=== PATIENT | female | born 1970 | race Caucasian/White ===

== ENCOUNTER → 2016-07-16 | Outpatient (CLI) | payer OTHER ==
[~2016-07-16] MED LIST: ALBUAER2 INH; AMIT25TA9 PO; BACL1TAB PO; BUPRTAB PO; BUPRTAB51 PO; CHOL20007 PO; CLR10 PO; DULO60CA44 PO; ELET40TA PO; IMITREX PO; LAMO200T38 PO; LEVO112T4 PO; LSX20 PO; MELO15TA10 PO; MOME50SP5 NAE; MULT-506 PO; OPTOPS OPB; POTA99TA PO; PRAZ2CAP3 PO; SNG10 PO; SUMA6KIT SQ; SYMIN160 INH; TIZA4CAP PO; TOPI200T14 PO; TOPI50TA25 PO
[2016-07-16 12:56] LABS: ALT/SGPT 28 U/L (12-78); AST/SGOT 13 U/L (15-37); BLOOD UREA NITROGEN 14 mg/dl (7-18); BUN/CREATININE RATIO 13.6 (10-20); CALCIUM 8.8 mg/dl (8.5-10.1); CARBON DIOXIDE 23 mmol/L (21-32); CHLORIDE 105 mmol/L (98-107); GLUCOSE 92 mg/dl (70-99); MAGNESIUM 2.1 mg/dl (1.8-2.4); POTASSIUM 3.4 mmol/L (3.5-5.1); SODIUM 140 mmol/L (136-145)
[2016-07-16 13:07] LABS: ALB/GLOB RATIO 1.2 (0.9-2); ALKALINE PHOSPHATASE 113 U/L (45-117)
== END | disposition home or self-care (01) ==
LOC: C.LAB1850 10:56
PROVIDERS: ATTEND Internal Medicine
DX: R53.83 Other fatigue (principal); E03.9 Hypothyroidism, unspecified

== ENCOUNTER → 2016-08-29 | Day surgery (SDC) | payer OTHER ==
[2016-08-23 07:46] VITALS: BMI 38.0
--- NOTE | 2016-08-28 13:48 | HISTORY & PHYSICAL EXAMINATION ---
DATE OF ADMISSION: 08/29/2016 SUBJECTIVE CHIEF COMPLAINT: Lower back pain. HISTORY OF PRESENT ILLNESS: The patient has been seen for some time with bilateral lower back pain. She has been treated with corticosteroid injections in both sacroiliac joints and she has done quite well with these. She is now being set up for another set of injections. PAST MEDICAL HISTORY: Asthma, anxiety and depression, bipolar disorder, hypothyroidism, history of neck and lower back pain, obesity. SOCIAL HISTORY: The patient denies alcohol and tobacco use. FAMILY HISTORY: Noncontributory. PAST SURGICAL HISTORY: Ankle surgery in April 2015, sinus surgery in September 2004, corticosteroid injections into her neck in 2004, wisdom teeth surgery in 1989, laparoscopy in 1993 and tonsillectomy in 1974. ALLERGIES: SULFA MEDICATIONS AND EGG WHITES. CURRENT MEDICATIONS: Singulair 10 mg, Topamax 200 mg, Lasix 20 mg, levothyroxine 112 mcg, lamotrigine 200 mg, Claritin 10 mg, amitriptyline 25 mg, Gablofen 10 mg, tizanidine 4 mg, Symbicort 160/4.5 mcg, Cymbalta 60 mg, meloxicam 15 mg, cromolyn 4% eyedrops, Ventolin HFA 90 mcg, triamcinolone 55 mcg nasal spray, Imitrex 10 mg, vitamin D 2000 mg supplement, multivitamin and prazosin 2 mg. OBJECTIVE PHYSICAL EXAMINATION: GENERAL: The patient is alert and oriented x3. She is in no acute distress. She is a well-dressed, well-nourished 45-year-old female. Her affect is appropriate. CARDIOVASCULAR: Heart has a regular rhythm and rate without murmurs. LUNGS: Clear to auscultation bilateral. Dorsalis pedis, posterior tib pulse +2/4. Cap refill is less than 2 seconds. LYMPHATIC: No evidence of any swollen lymph nodes. MUSCULOSKELETAL: The patient has a compensated gait favoring bilateral lower extremities with palpation of her lower back. She has tenderness at the right and left sacroiliac joints. She has equal strength in bilateral lower extremities with dorsiflexion, plantar flexion, inversion, eversion and also with knee extension and flexion. NEUROLOGIC: Patellar and Achilles deep tendon reflexes are 2/4. Sensation normal and intact in bilateral lower extremities. SKIN: There are no scars, rashes or ulcers noted at her lower back. ASSESSMENT AND DIAGNOSIS: Sacroiliac joint osteoarthritis bilateral. PLAN: Above assessment was discussed with the patient. At this time, it was recommended that patient undergo bilateral sacroiliac joints under fluoroscopy. All potential risks, benefits, complications, alternatives and rehab have been discussed with the patient. At this time, she wishes to proceed with the surgery as indicated and she will be scheduled for the surgery on 08/29/2016.
[~2016-08-29] VITALS: Ht 160 cm; Wt 97.7 kg
[~2016-08-29] MED LIST changes: +BUPIVACAINE 0.25% 30 ML VIAL ONE; +BUPIVACAINE 0.5 % 5 MG/1 ML MPF 30ML VIAL ONE; +BUPIVACAINE/EPINEPHRINE 0.5% MPF 1:200,000 30 ML VIAL ONE; -ELET40TA PO; +FENTANYL CITRATE INJ 50 MCG/1 ML 2 ML VIAL IV PRN; +FENTANYL CITRATE INJ 50 MCG/1 ML 2 ML VIAL ONE; +HYALURONIDASE HUMAN 150 UNIT/ML INJ ONE; +LACTATED RINGER'S 1000ML 1,000 ML IV PRN; +LACTATED RINGER'S 1000ML 1,000 ML IV SCH; +LIDOCAINE HCL 1% 20 ML VIAL ONE; +METHYLPREDNISOLONE ACETATE 80 MG/ML VIAL ONE; +MIDAZOLAM HCL 1 MG/ML 2ML VIAL ONE; +NEOMYCIN/POLYMYX/BACITR OINT 15 GM TUBE ONE; +ONDANSETRON INJ 2 MG/ML 2 ML VIAL IV PRN; -POTA99TA PO; +PROPOFOL IV EMULSION 10 MG/ML 20 ML VIAL IV ONE; +SODIUM CHLORIDE 0.9% INJ 10 ML VIAL ONE; +TRIAMCINOLONE ACET 40 MG/ML VIAL ONE
[2016-08-29 06:05] VITALS: BP 115/59; PULSE 98; TEMP 37; O2SAT 97; Ht 160 cm; Wt 97.7 kg
--- NOTE | 2016-08-29 07:57 | History & Physical Bridge Note ---
H&P Re-Evaluation Bridge Note: I have examined the patient, reviewed the History & Physical and in the interval since the performance of the History & Physical I have noted the following changes of clinical significance: No changes noted
--- NOTE | 2016-08-29 09:15 | [facility] Post Operative Brief Note ---
Immediate Operative Summary Operative Date Aug 29, 2016. Pre-Operative Diagnosis bilateral sacroiliac joint osteoarthritis Post-Operative Diagnosis bilateral sacroiliac joint osteoarthritis Procedure(s) Performed Bilateral Sacroiliac Steroid Injections Under Fluoro with sedation Surgeon Dr. Rolf Sosa Stone Rubber Surgeon(s) None Estimated Blood Loss 0ml Findings See Dict Specimens none per surgeon Dr. Rolf Sosa Drains None Anesthesia Local w/ sedation Complication(s) None Disposition Recovery Room / PACU
--- NOTE | 2016-08-29 09:23 | DIAGNOSTIC IMAGING REPORT ---
INTRAOPERATIVE RADIOGRAPHS CLINICAL HISTORY: Bilateral sacroiliac joint injections. Fluoroscopy time: 40 seconds. FINDINGS: 2 spot fluoroscopic views of the sacroiliac joints are presented. There is contrast present from bilateral sacroiliac joint injections. IMPRESSION: Intraoperative images from bilateral sacroiliac joint injections. Electronically signed by: Villa Adame M.D. 08/29/2016 9:22 AM Dictated Date/Time: 08/29/2016 9:21 AM
--- NOTE | 2016-08-29 09:24 | Discharge Instructions ---
Discharge Instructions Date of Service Aug 29, 2016. Admission Reason for Admission: Bilateral Sacroliac Joint Arthritis Discharge Discharge Diagnosis / Problem: Bilateral Sacroliac Joint Arthritis Discharge Goals Goal(s): Decrease discomfort, Improve function Activity Recommendations Activity Limitations: resume your previous activity Lifting Limitations: none Exercise/Sports Limitations: none May Resume Sexual Activity: when tolerated Shower/Bathe: tomorrow Driving or Machine Use: resume 1 day after discharge Weightbearing Status: Left weightbearing (as tolerated), Right weightbearing ( as tolerated) . Instructions / Follow-Up Instructions / Follow-Up ACTIVITY RECOMMENDATIONS: * You may walk on the legs without crutches as comfort permits. * Do not shower for 16 hours following surgery. SPECIAL CARE INSTRUCTIONS: * You may cleanse the skin adjacent to the small wounds with soap and water at the time of the first dressing change. * The application of an ice bag to the lower back will decrease swelling and discomfort for the first 48 hours. * The small incisions may be sore and develop bruising. This bruising does not require any special care. SPECIAL PRECAUTIONS: * If you experience unusual pain unrelieved by prescriptions, temperature elevation (100 degrees F. or above) or progressive swelling or bleeding, you should contact our office at for further evaluation. * You may have been prescribed pain medication. If you experience nausea and/or fine skin rash, discontinue this medication and contact our office at for an alternate medication. DRESSING: * Dressing should be comfortable and absorb any leakage of fluid and/or blood. * The dressing may become moist or bloodstained. * Dressing may be removed 1 after surgery and bandaids placed over the small surgical incisions. If can be removed sooner if it becomes very soiled or loose. * Bandaids may be used over next several days as needed and can be discontinued when there is not further drainage from the wounds. FOLLOW UP VISIT: If appointment is not already scheduled: Please call [facility] to make a follow-up appointment for your surgery at . Current Hospital Diet Patient's current hospital diet: Discharge Diet Recommended Diet: Regular Diet Procedures Procedures Performed: Bilateral Sacroiliac Steroid Injections Under Fluoro with sedation Pending Studies Studies pending at discharge: no Medical Emergencies . Who to Call and When: Medical Emergencies: If at any time you feel your situation is an emergency, please call 911 immediately. . Non-Emergent Contact Non-Emergency issues call your: Surgeon Call Non-Emergent contact if: temperature is above 101, your pain is not controlled, wound has increased redness . "Provider Documentation" section prepared by Rolf Sosa. VTE Core Measure Inpt VTE Proph given/why not?: Treatment not indicated
--- NOTE | 2016-08-29 09:27 | Anesthesiology Progress Note ---
Anesthesia Post Op Note Date & Time Aug 29, 2016 at 09:27 Vital Signs Pain Intensity: 0 Vital Signs Past 12 Hours Date Time Temp Pulse Resp B/P Pulse Ox O2 Delivery O2 Flow Rate FiO2 08/29/16 09:21 71 16 97 08/29/16 09:21 71 16 08/29/16 09:20 125/74 08/29/16 09:16 72 16 08/29/16 09:16 72 16 118/71 98 08/29/16 09:11 75 16 124/69 97 08/29/16 09:11 74 16 08/29/16 09:06 75 15 100 08/29/16 09:06 75 15 08/29/16 09:05 122/79 08/29/16 09:01 81 08/29/16 09:01 36.0 82 12 124/85 100 Nasal Cannula 2 08/29/16 09:01 81 124/85 100 08/29/16 06:05 37 98 20 115/59 97 Room Air Notes Mental Status: alert / awake / arousable, participated in evaluation Pt Amnestic to Procedure: No Nausea / Vomiting: adequately controlled Pain: adequately controlled Airway Patency, RR, SpO2: stable & adequate BP & HR: stable & adequate Hydration State: stable & adequate Anesthetic Complications: no major complications apparent Pt doing well. Recall as expected.
[2016-08-29 09:30] VITALS: BP 105/59; PULSE 68; TEMP 36.4; O2SAT 98
--- NOTE | 2016-08-29 09:54 | OPERATIVE REPORT ---
DATE OF OPERATION: 08/29/2016 PREOPERATIVE DIAGNOSES: 1. Bilateral sacroiliac joint osteoarthritis. 2. Bilateral sacroiliac joint pain. POSTOPERATIVE DIAGNOSES: Same. PROCEDURE: Bilateral sacroiliac joint steroid injections with fluoroscopy under sedation. SURGEON: Dr. Rolf Sosa. THERAPY ADMINISTRATIVE ASSISTANT: None. ANESTHESIA: Local with sedation. SPECIMENS: None. DRAINS: None. COMPLICATIONS: None. BLOOD LOSS: Less than 1 mL. PERTINENT HISTORY: This is a 45-year-old female with bilateral sacroiliac joint osteoarthritis, pain and limitation in weightbearing and walking due to the above. The patient attempted conservative management including physical therapy, home exercises, anti-inflammatories, rest, observation, shoe wear modification, and other modalities. She was scheduled for surgery as indicated. All potential risks, benefits, complications, alternatives, rehab, potential for incomplete relief of symptoms, need for further surgery, DVT, PE, , persistent pain, swelling, scarring, weakness, neurovascular injury, and wound complications were discussed with the patient. The patient decided to proceed with the procedure as indicated. DESCRIPTION OF PROCEDURE: The patient was taken to the operative suite and placed supine on the transfer cart. After sedation, the patient was then rolled prone over bolsters. All bony prominences were properly padded and protected. The patient was then positioned appropriately. Proper operative site was identified. Consent was reviewed: The patient was sedated. Next, the bilateral sacroiliac joint regions were sterilely prepped and draped in the usual fashion. Under live fluoroscopic assistance, the left sacroiliac joint was then identified and then 1% lidocaine, approximately 8 mL used to provide local anesthetic and then a 22-gauge spinal needle was then passed into the inferior one-third of the sacroiliac joint under live fluoroscopic assistance followed by confirmatory injection with 1 mL of Isovue. Next, a mixture of 2 mL of Depo-Medrol and 8 mL of 0.5% Marcaine plain was injected in the left sacroiliac joint, confirmed with fluoroscopy. Next, the needle was removed in its entirety and a sterile compressive dressing was applied with 4x4. Next, the right sacroiliac joint was then localized under live fluoroscopy followed by an injection with 1% lidocaine, approximately 8 mL. Next, a 22-gauge spinal needle was passed into the sacroiliac joint inferior one-third under live fluoroscopic assistance. This was confirmed with Isovue approximately 1 mL injected under fluoroscopy. Next, 2 mL of Depo-Medrol and 8 mL of 0.5% Marcaine plain was injected into the sacroiliac joint inferior one-third under live fluoroscopic assistance. Next, the needle was removed in its entirety. A sterile compressive dressing with 4x4 was applied. Next Band-Aids were placed over both injection sites. The patient was awakened and taken to recovery in stable condition. I attest to the content of the Intraoperative Record and any orders documented therein. Any exceptio ns are noted below.
[2016-08-29 10:00] VITALS: BP 99/59; PULSE 72; TEMP 36.4; O2SAT 99
[2016-08-29 10:32] VITALS: BP 104/55; PULSE 80; TEMP 36.5; O2SAT 99
== END | disposition home or self-care (01) ==
LOC: C.ACU 05:27
PROVIDERS: ATTEND Orthopaedic Surgery Sports Medicine
DX: M46.1 Sacroiliitis, not elsewhere classified (principal); M16.10 Unilateral primary osteoarthritis, unspecified hip; E03.9 Hypothyroidism, unspecified; E66.9 Obesity, unspecified; Z98.890 Other specified postprocedural states; J45.909 Unspecified asthma, uncomplicated; F41.9 Anxiety disorder, unspecified; F32.9 Major depressive disorder, single episode, unspecified; Z88.2 Allergy status to sulfonamides

== ENCOUNTER → 2017-01-10 | Outpatient (CLI) | payer OTHER ==
[~2017-01-10] MED LIST changes: -BUPIVACAINE 0.25% 30 ML VIAL ONE; -BUPIVACAINE 0.5 % 5 MG/1 ML MPF 30ML VIAL ONE; -BUPIVACAINE/EPINEPHRINE 0.5% MPF 1:200,000 30 ML VIAL ONE; -FENTANYL CITRATE INJ 50 MCG/1 ML 2 ML VIAL IV PRN; -FENTANYL CITRATE INJ 50 MCG/1 ML 2 ML VIAL ONE; -HYALURONIDASE HUMAN 150 UNIT/ML INJ ONE; -LACTATED RINGER'S 1000ML 1,000 ML IV PRN; -LACTATED RINGER'S 1000ML 1,000 ML IV SCH; -LIDOCAINE HCL 1% 20 ML VIAL ONE; -METHYLPREDNISOLONE ACETATE 80 MG/ML VIAL ONE; -MIDAZOLAM HCL 1 MG/ML 2ML VIAL ONE; -NEOMYCIN/POLYMYX/BACITR OINT 15 GM TUBE ONE; -ONDANSETRON INJ 2 MG/ML 2 ML VIAL IV PRN; -PROPOFOL IV EMULSION 10 MG/ML 20 ML VIAL IV ONE; -SODIUM CHLORIDE 0.9% INJ 10 ML VIAL ONE; -TRIAMCINOLONE ACET 40 MG/ML VIAL ONE
[2017-01-10 14:01] LABS: ALT/SGPT 28 U/L (12-78); AST/SGOT 24 U/L (15-37); BLOOD UREA NITROGEN 12 mg/dl (7-18); BUN/CREATININE RATIO 9.9 (10-20); CARBON DIOXIDE 23 mmol/L (21-32); CHLORIDE 109 mmol/L (98-107); CHOLESTEROL 167 mg/dl (0-200); GLUCOSE 88 mg/dl (70-99); POTASSIUM 3.8 mmol/L (3.5-5.1); SODIUM 143 mmol/L (136-145); TRIGLYCERIDES 98 mg/dl (0-150); VERY LOW DENSITY LIPOPROT CALC 20 mg/dl
[2017-01-10 14:11] LABS: ALB/GLOB RATIO 1.1 (0.9-2); ALKALINE PHOSPHATASE 104 U/L (45-117); CHOLESTEROL/HDL RATIO 3.5; HDL CHOLESTEROL 48 mg/dl; LDL CHOLESTEROL CALCULATED 99 mg/dl
== END | disposition home or self-care (01) ==
LOC: C.LABBC 09:26
PROVIDERS: ATTEND Internal Medicine
DX: E87.6 Hypokalemia (principal); Z86.39 Personal history of other endocrine, nutritional and metabolic disease; E03.9 Hypothyroidism, unspecified

== ENCOUNTER → 2017-05-27 | Outpatient (CLI) | payer OTHER ==
[~2017-05-27] MED LIST changes: +LAMO200T35 PO; -LAMO200T38 PO
--- NOTE | 2017-05-27 17:17 | DIAGNOSTIC IMAGING REPORT ---
TWO VIEW CHEST CLINICAL HISTORY: Cough. FINDINGS: PA and lateral chest radiographs are compared to study dated 01/17/2012. The cardiomediastinal silhouette is unremarkable. There are low lung volumes. The lungs and pleural spaces are clear. There is no pneumothorax. The bony thorax appears intact. Mild thoracic scoliosis is suggested. IMPRESSION: Low lung volumes with no active disease in the chest. Electronically signed by: Villa Adame M.D. 05/27/2017 5:16 PM Dictated Date/Time: 05/27/2017 5:15 PM
== END | disposition home or self-care (01) ==
LOC: C.RAD1850 16:55
PROVIDERS: ATTEND Nurse Practitioner
DX: R05 Cough (principal)

== ENCOUNTER → 2017-07-05 | Outpatient (CLI) | payer OTHER ==
--- NOTE | 2017-07-08 07:44 | MAMMOGRAPHY REPORT ---
BILATERAL DIGITAL SCREENING MAMMOGRAM TOMOSYNTHESIS WITH CAD: 07/05/2017 CLINICAL HISTORY: Routine screening. Patient has no complaints. TECHNIQUE: Breast tomosynthesis in addition to standard 2D mammography was performed. Current study was also evaluated with a Computer Aided Detection (CAD) system. COMPARISON: Comparison is made to exams dated: 05/23/2016 mammogram, 04/26/2015 mammogram, 04/19/2014 mammogram, 04/14/2013 mammogram, 03/18/2012 mammogram, and 03/13/2011 mammogram - [facility]. BREAST COMPOSITION: There are scattered areas of fibroglandular density in both breasts. FINDINGS: No suspicious masses, calcifications, or areas of architectural distortion are noted in ei ther breast. There has been no significant interval change compared to prior exams. IMPRESSION: ACR BI-RADS CATEGORY 1: NEGATIVE There is no mammographic evidence of malignancy. A 1 year screening mammogram is recommended. The pa tient will receive written notification of the results. Approximately 10% of breast cancers are not detected with mammography. A negative mammographic report should not delay biopsy if a clinically suggestive mass is present. Danika Rojas M.D. /:07/05/2017 15:10:41 Welding Technician: Malgorzata HOBSON(Nicolas)(Smita), [facility] letter sent: Normal 1/2 BI-RADS Code: ACR BI-RADS Category 1: Negative
== END | disposition home or self-care (01) ==
LOC: C.MAMM 14:07
PROVIDERS: ATTEND Obstetrics & Gynecology
DX: Z12.31 Encounter for screening mammogram for malignant neoplasm of breast (principal)

== ENCOUNTER → 2017-07-05 | Outpatient (CLI) | payer OTHER | END | disposition home or self-care (01) | LOC: C.LAB1850 13:48 | PROVIDERS: ATTEND Psychiatry & Neurology Child & Adolescent Psychiatry | DX: F31.81 Bipolar II disorder (principal) ==

== ENCOUNTER → 2017-07-22 | Outpatient (CLI) | payer OTHER ==
[2017-07-22 16:43] LABS: BASO % 0.4 %; BASO ABS # 0.03 K/uL (0-0.2); EOS % 4.4 %; EOS ABS # 0.31 K/uL (0-0.5); HEMATOCRIT 42.1 % (37-47); HEMOGLOBIN 14.5 g/dL (12.0-16.0); IG# 0.01 K/uL (0.00-0.02); LYMPH ABS # 2.33 K/uL (1.2-3.4); MEAN CELL VOLUME 93.1 fL (80-100); MEAN CORPUSCULAR HEMOGLOBIN 32.1 pg (25-34); MEAN CORPUSCULAR HGB CONC 34.4 g/dl (32-36); MEAN PLATELET VOLUME 9.3 fL (7.4-10.4); MONO % 6.7 %; MONO ABS # 0.47 K/uL (0.11-0.59); NEUT % 55.4 %; PLATELET COUNT 271 K/uL (130-400); RED CELL DISTRIBUTION WIDTH CV 13.6 % (11.5-14.5); RED CELL DISTRIBUTION WIDTH SD 46.6 fL (36.4-46.3); WHITE BLOOD COUNT 7.05 K/uL (4.8-10.8)
[2017-07-22 17:22] LABS: ALBUMIN 4.4 gm/dl (3.4-5.0); ALT/SGPT 31 U/L (12-78); BLOOD UREA NITROGEN 15 mg/dl (7-18); CALCIUM 8.9 mg/dl (8.5-10.1); CARBON DIOXIDE 26 mmol/L (21-32); CREATININE 1.05 mg/dl (0.60-1.20); GLUCOSE 89 mg/dl (70-99); POTASSIUM 3.4 mmol/L (3.5-5.1); SODIUM 138 mmol/L (136-145)
[2017-07-22 17:32] LABS: ALKALINE PHOSPHATASE 119 U/L (45-117); AST/SGOT 22 U/L (15-37); TOTAL PROTEIN 7.9 gm/dl (6.4-8.2)
== END | disposition home or self-care (01) ==
LOC: C.LAB1850 15:21
PROVIDERS: ATTEND Internal Medicine
DX: E03.9 Hypothyroidism, unspecified (principal); E55.9 Vitamin D deficiency, unspecified; R53.83 Other fatigue

== ENCOUNTER → 2017-09-11 | Outpatient (CLI) | payer OTHER ==
[2017-09-11 16:53] LABS: POTASSIUM 3.6 mmol/L (3.5-5.1)
== END | disposition home or self-care (01) ==
LOC: C.LAB1850 15:11
PROVIDERS: ATTEND Internal Medicine
DX: E03.9 Hypothyroidism, unspecified (principal); E87.6 Hypokalemia

== ENCOUNTER → 2017-09-23 | Outpatient (CLI) | payer OTHER ==
[~2017-09-23] MED LIST changes: +GADAVIST IV PRN
--- NOTE | 2017-09-23 22:01 | DIAGNOSTIC IMAGING REPORT ---
MRI OF THE BRAIN COMBO CLINICAL HISTORY: Migraine headache. COMPARISON STUDY: CT of the brain dated 02/28/2016 and MRI of the brain dated 02/02/2013. TECHNIQUE: MRI of the brain was performed utilizing various T1 and T2-weighted sequences in the axial, sagittal, and coronal planes. Contrast-enhanced sequences were acquired following the administration of 9.5 cc of Gadavist. FINDINGS: Brain parenchyma: The brain parenchyma is normal in appearance. There is no hemorrhage or mass effect. There is no restricted diffusion to suggest acute ischemia. No enhancing mass lesion is identified on the postcontrast images. Mendoza-white matter differentiation is preserved. No extra-axial fluid collection is seen. The cerebellar tonsils are normal in configuration. Ventricles, sulci, and cisterns: Normal in configuration. Pituitary and sella: Unremarkable. Intracranial vasculature: Normal flow voids are maintained at the skull base. Orbits: The bony orbits are grossly intact. Orbital contents are normal in appearance. Sinuses and mastoids: Clear. Calvarium: Unremarkable. Cervical cord: Partially visualized cervical spinal cord is normal in morphology and signal intensity. IMPRESSION: No acute intracranial abnormality. Electronically signed by: Villa Adame M.D. 09/23/2017 10:00 PM Dictated Date/Time: 09/23/2017 9:57 PM
== END | disposition home or self-care (01) ==
LOC: C.MRI 20:42
PROVIDERS: ATTEND Psychiatry & Neurology Neurology
DX: G43.719 Chronic migraine without aura, intractable, without status migrainosus (principal); M54.81 Occipital neuralgia; M21.41 Flat foot [pes planus] (acquired), right foot

== ENCOUNTER → 2017-10-18 | Outpatient (CLI) | payer OTHER ==
[~2017-10-18] MED LIST changes: -GADAVIST IV PRN
== END | disposition home or self-care (01) ==
LOC: C.PAPS 15:31
PROVIDERS: ATTEND Obstetrics & Gynecology
DX: Z01.419 Encounter for gynecological examination (general) (routine) without abnormal findings (principal)

== ENCOUNTER 2017-10-22 13:25 | Emergency (ER) | payer OTHER ==
[~2017-10-22] VITALS: Ht 160 cm; Wt 99.2 kg
[2017-10-22 13:32] VITALS: TEMP 36.9; Ht 160 cm; Wt 99.2 kg
--- NOTE | 2017-10-22 15:20 | DIAGNOSTIC IMAGING REPORT ---
HEAD WITHOUT CONTRAST (CT) CT DOSE: HISTORY: Trauma head injury, off balance, dizziness/headache TECHNIQUE: Multiaxial CT images of the head were performed without the use of intravenous contrast. A dose lowering technique was utilized adhering to the principles of ALARA. Comparison: 02/28/2016 Findings: The paranasal sinuses and mastoid air cells are clear. The calvarium and skull base are intact. The ventricles and sulci are within normal limits. There is no mass, hematoma, midline shift, or acute infarct. Impression: No acute intracranial abnormality. The above report was generated using voice recognition software. It may contain grammatical, syntax or spelling errors. Electronically signed by: Jono Jean-Baptiste M.D. 10/22/2017 3:19 PM Dictated Date/Time: 10/22/2017 3:18 PM
--- NOTE | 2017-10-22 15:24 | EMERGENCY ROOM VISIT NOTE ---
ED Visit Note First contact with patient: 13:37 CHIEF COMPLAINT: Head injury/facial pain HISTORY OF PRESENT ILLNESS: This 46-year-old female patient presented to the emergency department, ambulatory, 5 days after receiving a head injury. The patient states in the middle of the night on night, she awoke and bumped into a wall. She states she was wearing her glasses at the time, and struck the right anterior aspect of her forehead, pushing her glasses into her eye and face. She states since then, she is noticing some increased swelling and redness around the eye. She describes a sensation of "feeling off". She feels that her gait is more unsteady than normal. She did contact her PCP and was advised to come to the emergency department in case of a slow bleed. The PCP did recommend a CT scan. There was no loss of consciousness. There has been no vomiting. The patient complains of ongoing headache, tenderness, and difficulty concentrating at work. The patient denies vomiting, visual disturbances, dizziness, or other concerning symptoms. The headache has been constant. The patient complains of no neck pain. The patient has taken Tylenol for the pain. The patient rates the pain as 4/10 and sharp. The patient denies bowel or bladder dysfunction. The patient denies any other injuries. REVIEW OF SYSTEMS: A 10 system review of systems was performed with positives and pertinent negatives listed in the history of present illness. All other systems were reviewed and are negative. ALLERGIES: Latex, sulfa PMH: Asthma, bronchitis, migraines, bipolar SOCIAL HISTORY: The patient lives locally with family. She denies drug, alcohol , tobacco use. PHYSICAL EXAM: Vital Signs: Reviewed Nurse's notes, vital signs stable. GENERAL : This is a 46-year-old female, in no acute distress, well-developed, well- nourished. NEURO: The patient is alert, oriented to person place and time, and coherent. Normal mini mental status exam. Negative Romberg and pronator drift. Cerebellar function intact. HEAD: Normocephalic, atraumatic. EYES: Pupils are equal round and reactive to light and accommodation. EOMs are full and optic discs and fundi are normal. There is no discharge or injection from the eyes. No foreign body noted. The cornea was clear and no hyphema was seen. There is mild swelling, but no discoloration of the tissue surrounding the right eye. EARS: External auditory canals clear without blood. NOSE: Patent without tenderness. No septal hematoma. FACE: No facial bone tenderness. NECK: Supple. There is no cervical spine tenderness. The patient does not have tenderness with movement of the neck. RADIOLOGY: HEAD WITHOUT CONTRAST (CT) CT DOSE: HISTORY: Trauma head injury, off balance, dizziness/headache TECHNIQUE: Multiaxial CT images of the head were performed without the use of intravenous contrast. A dose lowering technique was utilized adhering to the principles of ALARA. Comparison: 02/28/2016 Findings: The paranasal sinuses and mastoid air cells are clear. The calvarium and skull base are intact. The ventricles and sulci are within normal limits. There is no mass, hematoma, midline shift, or acute infarct. Impression: No acute intracranial abnormality. The above report was generated using voice recognition software. It may contain grammatical, syntax or spelling errors. Electronically signed by: Jono Jean-Baptiste M.D. 10/22/2017 3:19 PM Dictated Date/Time: 10/22/2017 3:18 PM FACIAL BONES-MXILLOFAC WITHOUT CT DOSE: 822.77 mGy.cm HISTORY: Trauma head injury, right periorbital pain/swelling/redness TECHNIQUE: Multiaxial CT images of the maxillofacial region were performed and reformatted in the coronal plane without the use of contrast. A dose lowering technique was utilized adhering to the principles of ALARA. COMPARISON: 06/07/2009 FINDINGS: Operative changes consistent with prior antral window placement as well as partial ethmoidectomies. All major sinuses are clear. The osseous structures appear intact. Minimal soft tissue edema is present. IMPRESSION: No acute process of the maxillofacial region. Stable postoperative changes of the sinuses. The above report was generated using voice recognition software. It may contain grammatical, syntax or spelling errors. Electronically signed by: Jono Jean-Baptiste M.D. 10/22/2017 3:22 PM Dictated Date/Time: 10/22/2017 3:19 PM ED COURSE: I examined the patient. CT scans performed and reviewed by myself and radiologist as above. I discussed the findings with the patient at bedside. Pressures were obtained of the eyes, 16 (R) and 15 (L). I discussed all findings with the patient. I encouraged close follow-up with the PCP and photo technologist. I suspect a moderate concussion. The patient was agreeable. She was offered a work note but declines. I did encourage frequent breaks from screens and bright lights at work. Discharge instructions reviewed. The patient was discharged home in good condition ambulatory. I attest that I have personally reviewed the patient's current medication list. Patient was found to have normal blood pressure on screening and does not require follow-up. Etiologies such as migraine, tumor, headache, concussion, sinus thrombosis, temporal arteritis, sinusitis, CVA, ICH, SAH, infection, conjunctivitis, corneal abrasion, uveitis, glaucoma, periorbital cellulitis, orbital cellulitis , abscess, trauma, as well as others were entertained. DIAGNOSIS: Concussion, closed head injury, periorbital edema of the right eye The chart was completed utilizing [employer] Speech voice recognition software. Grammatical errors, random word insertions, pronoun errors, and incomplete sentences are an occasional consequence of this system due to software limitations, ambient noise, and hardware issues. Any formal questions or concerns about the content, text, or information contained within the body of this dictation should be directly addressed to the provider for clarification. Problem List Medical Problems: (1) Asthma Status: Chronic Current/Historical Medications Scheduled Amitriptyline Hcl (Elavil), 75 MG PO HS Budesonide/Formoterol Fumarate (Symbicort 160/4.5 Inhaler), 2 PUFFS INH BID Bupropion (Wellbutrin-Xl), 300 MG PO QAM Bupropion Hcl (Wellbutrin Xl), 1 TAB PO QAM Cholecalciferol (Vitamin D3), 2 TAB PO QAM Duloxetine Hcl (Cymbalta), 120 MG PO QAM Furosemide (Lasix *), 20 MG PO QAM Lamotrigine (Lamictal), 200 MG PO BID Levothyroxine Sodium (Levothyroxine Sodium), 112 MCG PO QAM Loratadine (Claritin), 10 MG PO QAM Meloxicam (Mobic), 15 MG PO QAM Montelukast (Singulair *), 10 MG PO HS Multivitamin (Multivitamin), 1 TAB PO QAM Prazosin Hcl (Prazosin), 8 MG PO HS Sumatriptan Succinate (Imitrex Statdose), 1 DOSE SQ UD Tizanidine (Zanaflex), 8 MG PO HS Topiramate (Topamax), 200 MG PO BID Topiramate (Topiramate), 50 MG PO BID Scheduled PRN Albuterol (Ventolin), PUFF INH Q4 PRN Baclofen (Lioresal), 1-2 TAB PO TID PRN for Migraine Cromolyn Sodium 4% Oph (Opticrom Oph), 1 DROP OPB DAILY PRN for ITCHY EYE Mometasone Furoate (Nasonex), 2 SPRAYS MARILEE DAILY PRN for NASAL [Imitrex], 10 MG PO UD PRN for Migraine Allergies Coded Allergies: Sulfa Drugs (Unverified Allergy, Severe, HIVES, TEMP ELEVATION, 08/29/16) Egg White (Unverified Allergy, Intermediate, RASH, STOMACH CRAMPING, VOMITING, 08/29/16) testing positive for egg allergy during allergy testing; 'entire skin area swollen' Latex (Unverified Allergy, Mild, RASH, 08/29/16) Peanut (Unverified Allergy, Mild, NAUSEA, 08/29/16) pt with peanut allergy per pcp note Vital Signs Date Time Temp Pulse Resp B/P (MAP) Pulse Ox O2 Delivery O2 Flow Rate FiO2 10/22/17 16:09 87 20 151/88 100 10/22/17 13:32 36.9 98 18 155/90 99 Room Air Departure Information Impression Primary Impression: Closed head injury Additional Impressions: Concussion Periorbital edema of right eye Dispostion Home / Self-Care Condition GOOD Referrals RV. Colindres MD (PCP) Patient Instructions ED Concussion, [facility] Additional Instructions You have been treated in the Emergency Department for a Closed Head Injury/eye discomfort. Eye pressures were normal. CT Scan of your head/brain and face demonstrated no acute bleeding, fracture, or other abnormalities. This does not completely rule out the risk for future damage to the brain. For pain control, you can use the following raar-iyk-yrnlotn medicines (if >12 yo): Ibuprofen(Motrin, Advil) may be used for fever or pain. Use 600mg every six hours as needed. Take with food. Avoid using more than 2400mg in a 24 hour period. Do not use 2400mg per day for more than three consecutive days without physician direction. Prolonged inappropriate use can lead to stomach upset or ulcers. (AND/OR) Acetaminophen(Tylenol) may be used for fever or pain. Use 1000mg every six hours as needed. Avoid using more than 3000mg in a 24 hour period. You should relax in a quiet, dark place for the rest of the day. Avoid any possible triggers including: cigarette smoke, caffeine, nicotine, chocolate, wine, beer, loud noises or music, or bright lights. You should schedule a follow-up appointment in 2-3 days with your Primary Care Provider or established Neurologist for further evaluation and treatment of your Headache. Follow-up with your photo technologist this week for re-evaluation of the eye pain. Return to the Emergency Department if your current symptoms worsen despite treatment course outlined above, or if you develop any of the following symptoms : intractable pain despite aforementioned treatment course, visual disturbances , loss of vision, unilateral weakness or facial drooping, slurring of speech, loss of coordination, or loss of consciousness. Problem Qualifiers Primary Impression: Closed head injury Encounter type: initial encounter Qualified Codes: S09.90XA - Unspecified injury of head, initial encounter Additional Impressions: Concussion Encounter type: initial encounter Loss of consciousness presence/duration: without LOC Qualified Codes: S06.0X0A - Concussion without loss of consciousness, initial encounter
[2017-10-22 16:09] VITALS: BP 151/88; PULSE 87; O2SAT 100
== END 2017-10-22 16:11 | disposition home or self-care (01) ==
LOC: C.EDB 13:27 → C.EDD 16:11
DX: S06.0X9A Concussion with loss of consciousness of unspecified duration, initial encounter (principal); H02.843 Edema of right eye, unspecified eyelid; W22.8XXA Striking against or struck by other objects, initial encounter; J45.909 Unspecified asthma, uncomplicated; Z88.2 Allergy status to sulfonamides; Z91.012 Allergy to eggs; Z91.040 Latex allergy status; Z91.010 Allergy to peanuts

== ENCOUNTER → 2018-01-06 | Outpatient (CLI) | payer OTHER ==
--- NOTE | 2018-01-06 14:04 | DIAGNOSTIC IMAGING REPORT ---
FACIAL BONES MIN 3 VIEWS RTN CLINICAL HISTORY: FACIAL TRAUMA COMPARISON STUDY: CT scan dated 10/22/2017 FINDINGS: There is no evidence of orbital emphysema. No air-fluid levels are visualized. No fractures are visualized on conventional radiographic imaging. IMPRESSION: No fractures identified on conventional radiographic imaging Electronically signed by: Gualberto Clay M.D. 01/06/2018 2:02 PM Dictated Date/Time: 01/06/2018 2:02 PM
== END | disposition home or self-care (01) ==
LOC: C.RAD1850 13:46
PROVIDERS: ATTEND Physician Assistant
DX: S09.93XA Unspecified injury of face, initial encounter (principal); X58.XXXA Exposure to other specified factors, initial encounter